=== PATIENT | male | born 1950 | race African-American/Black ===

== ENCOUNTER 2016-04-25 06:46 | Inpatient (IN) | payer MEDICARE ==
--- NOTE | 2016-04-25 07:39 | HIM.ANES ---
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 SILENT HEART ATTACK), Hx Cardiac Disorders, Hx Congestive Heart Failure No: Hx Angina, Hx Deep Vein Thrombosis EKG Rhythm: Sinus rhythm with occasional premature atrial contractions HEENT: Yes: Loose/Decaying Teeth, Removable Dental Work, Hx Vision Problem ( WEARS GLASSES), Other HEENT Problems Hx Other HEENT Problems: ALLERGIC RHINNITIS Respiratory: No: Hx Asthma, Hx Emphysema Gastrointestinal: No: Hx Gastroesophageal Reflux Disease, Hx Gastrointestinal Disorders Genitourinary: No: Hx Renal Disease Neurological/Musculoskeletal: No: HX Cerebrovascular Accident, Hx Neurological Disorders Psychological: No Hx Mental/Emotional Disorders Blood/Autoimmune: No: Hx AIDS, Hx Hepatitis (type) Smoking Status: Former smoker Hx Stress Test (date): Yes (John) Hx Echocardiogram (date): Yes (John Barros?) -Report Findings: Sinus rhythm with occasional premature atrial contractions Right bundle branch block Abnormal ECG - Focused Physical Exam Mallampati: Class I Thyromental Distance: Greater than 3 Neck: Full Range of Motion Dental: Removable Dental Work, Edentulous Cardiovascular/Chest: Normal Respiratory: Lungs clear Any problems with anesthesia, including nausea and vomiting?: No (NEVER HAD SURGERY) Any relatives with a history of Malignant Hyperthermia?: No Does patient have a history of Malignant Hyperthermia?: No Beta Yonny given (if appropriate): Yes Does the patient have a history of Motion Sickness-: No Other: Allergies Allergy/AdvReac Type Severity Reaction Status Date / Time No Known Allergies Allergy Verified 04/23/16 13:53 Home Medications Medication Instructions Recorded Last Taken Type Aspirin [Aspirin EC] 81 mg PO DAILY 04/23/16 04/20/16 History Carvedilol [Coreg] 12.5 mg PO BID 04/23/16 Unknown History Ciprofloxacin HCl [Cipro] 500 mg PO BID 04/23/16 Unknown History Furosemide [Lasix] 20 mg PO DAILY 04/23/16 Unknown History Lisinopril [Prinivil] 10 mg PO DAILY 04/23/16 Unknown History Lovastatin 10 mg PO DAILY 04/23/16 Unknown History Omeprazole [Prilosec] 20 mg PO DAILY 04/23/16 Unknown History Potassium Chloride [Klor-Con] 20 meq PO DAILY 04/23/16 Unknown History Spironolactone [Aldactone] 50 mg PO DAILY 04/23/16 Unknown History Thiamine HCl [Vitamin B-1] 100 mg PO DAILY 04/23/16 Unknown History Height and Weight Patient's height 5 ft 6 in Patient's weight 70.307 kg METS - Level of Activity: Climbing stairs(1 flight),walking level ground, running short distance - Anesthetic Plan Anesthesia Type: General ASA Class: 3 -: I have examined this patient and reviewed the medical record. The patient has been assessed prior to anesthesia. Risks and benefits of anesthesia and anesthetic technique options have been discussed and all questions answered. The patient accepts the risk and desires me to proceed with the planned anesthetic.
[2016-04-25] MEDS ORDERED: ONDANSETRON HCL 4 MG ODT TAB PO PRN (07:43)
[2016-04-25] MEDS ORDERED: FENTANYL 100 MCG/2 ML VIAL IV PRN ×2 (07:43)
[2016-04-25] MEDS ORDERED: MEPERIDINE 25 MG/ML TUBEX IV PRN (07:43)
[2016-04-25] MEDS ORDERED: HYDROmorphone 1 MG INJECTION IV PRN ×2 (07:43)
[2016-04-25] MEDS ORDERED: LABETALOL 20 MG/4 ML SYRINGE IV PRN (07:43)
[2016-04-25] MEDS ORDERED: ONDANSETRON HCL 4 MG/2 ML VIAL IV PRN ×3 (07:43→18:39)
[2016-04-25] MEDS ORDERED: hydrALAZINE 20 MG/ML VIAL IV PRN (07:43)
[2016-04-25] MEDS ORDERED: HEPARIN 5000 UNITS/ML VIAL ONE (07:43)
[2016-04-25] MEDS ORDERED: CEFAZOLIN 1 GM VIAL ONE (07:45)
[2016-04-25] MEDS ORDERED: PROPOFOL 200 MG/20 ML VIAL IV ONE (10:00)
[2016-04-25] MEDS ORDERED: SUCCINYLCHOLINE 20 MG/1 ML INJ 10 ML MDV IV ONE (10:00)
[2016-04-25] MEDS ORDERED: NEOSTIGMINE 1 MG/1 ML (1:1000) INJ 10 ML MDV IM ONE (10:00)
[2016-04-25] MEDS ORDERED: GLYCOPYRROLATE 1 MG VIAL IM ONE (10:00)
[2016-04-25] MEDS ORDERED: ONDANSETRON HCL 4 MG/2 ML VIAL IV ONE (10:00)
[2016-04-25] MEDS ORDERED: FENTANYL 250 MCG/5 ML VIAL IV ONE (10:00)
[2016-04-25] MEDS ORDERED: LIDOCAINE 100 MG PFS IV ONE (10:00)
[2016-04-25] MEDS ORDERED: ROCURONIUM 50 MG/5 ML VIAL IV ONE (10:00)
[2016-04-25] MEDS ORDERED: DEXAMETHASONE 4 MG/ML VIAL IV ONE (10:00)
[2016-04-25] MEDS ORDERED: HYDROmorphone 50 ML IV ONE (10:58)
[2016-04-25] MEDS: HYDROmorphone 50 ML IV PRN (11:04)
[2016-04-25 11:50] VITALS: BMI 26.0
[2016-04-25] MEDS: D5W/LR 1,000 ML IV SCH ×2 (12:06→20:01)
[2016-04-25] MEDS: ONDANSETRON HCL 4 MG/2 ML VIAL IV SCH ×2 (12:38→18:23)
[2016-04-25] MEDS: PANTOPRAZOLE 40 MG VIAL IV SCH (12:40)
[2016-04-25] MEDS: POTASSIUM CHLORIDE 20 MEQ TAB PO SCH (12:42)
[2016-04-25] MEDS: THIAMINE 100 MG TAB PO SCH (12:42)
[2016-04-25] MEDS: Levofloxacin 500 mg/100 ml D5W 500 MG/100 ML RTU IV SCH (12:43)
[2016-04-25 12:53] LABS: AUTOMATED BASOPHIL 0.5 % (0-2); AUTOMATED EOSINOPHIL 0.7 % (0-5); AUTOMATED NEUTROPHIL 84.8 % (45-76); MPV 8.1 fL (7.4-10.4)
[2016-04-25] MEDS ORDERED: Vaccine Screening Complete SCH (13:00)
[2016-04-25 13:06] LABS: BLOOD UREA NITROGEN 13 MG/DL (9-20); CALCIUM 8.4 MG/DL (8.4-10.2); CALCULATED OSMOLALITY 260 MOs/Kg (270-290); CHLORIDE 103 mEq/L (98-107); GLUCOSE 134 mg/dL (70-99); SODIUM LEVEL 134 mEq/L (137-146)
--- NOTE | 2016-04-25 13:12 | HIMOPRPT ---
DATE OF PROCEDURE: 04/25/16 PREOPERATIVE DIAGNOSIS: Adenocarcinoma of the prostate. POSTOPERATIVE DIAGNOSIS: Same. PROCEDURE PERFORMED: [radical retropubic prostatectomy with bilateral pelvic lymphadenectomy]. ANESTHESIA: [] general anesthesia with endotracheal tube. ANESTHESIOLOGIST: [Dr. Pal SURGEON: David Watters MD INDUSTRIAL ILLUMINATING ENGINEER: []. PROCEDURE IN DETAIL: []. Patient brought to the operating room and placed in supine position. General anesthesia by endotracheal tube was given. Once adequate level of anesthesia was obtained a Howell catheter was placed in the bladder and left indwelling. The table was flexed in the middle to extend the pelvis. The abdominal wall and external genitalia were once again prepped and draped usual sterile manner. A midline incision was made starting at the pubic pubic area and extending up to the umbilicus. The subcutaneous tissue and Sulaiman's fascia was incised in line of skin incision. The 2 recti muscles were after incision was made in the anterior rectus sheath. The tendons of the recti muscles were severed at the pubic symphysis partially. The peritoneum was reflected superiorly as much as possible to reach the retropubic space. On the right side the pelvic lymphadenectomy was carried out extending from the inner surface of the pelvis extending up to the hypogastric area. All the external iliac lymph nodes were and removed along with the lymphatics preserving the blood vessels and obturator nerve. The obturator vessels were preserved as well. Once the area was cleaned was packed with a mini lap pad. Exactly similar manner the lymphatic and lymphadenectomy was carried out on the left side as well. There was no evidence of any obvious enlarged or abnormal lymph nodes in these areas. Two incisions were made just lateral to the prostate gland in the endopelvic fascia using cautery. With the finger and did and thumb dissection the lateral surface of the prostate gland was cleared up to its apex. The Howell catheter was palpable in the urethra. The dorsal vein complex was from the urethra using prostate clamp. The dorsal vein complex was then tied with the 1 Vicryl the 2 ligatures were placed. A hemostatic suture was placed at the distal part of the prostate gland using 0 chromic cat gut. The dorsal vein complex was then divided between the ligatures. This exposed the anterior surface of the urethra. The neurovascular bundle was noted alongside the urethra which was dissected with a finger dissection and blunt dissection and the pushed posteriorly as much as possible. Patient is not sexually active and did not have any desire to preserve the sexual function once the urethra was dissected all around a right angle clamp was placed in the back of the urethra and with the knife the anterior surface of the urethra was incised to expose the Howell catheter. The Howell catheter was picked up with a right-angle clamp and divided between the clamps. At this point the posterior layer of the urethra was also divided to the apex of the prostate gland from the urethra completely. The distal end of the catheter was pushed out of the urethra. By gently pulling the on the Howell catheter on the balloon side the apex of the prostate gland were dissected gently with blunt and sharp dissection and a plane was developed between the 2 layers of fascia of Dinonvillier's. Once the prostate was free up to the base of the prostate the lateral pedicles were identified and divided between between the Ligaclips and ligatures. First on the right side the base of the seminal vesicle was identified and it was dissected towards the apex without any difficulty. At this point to the right vas deferens was also identified and I divided between the Ligaclips. Similar dissection was done on the left side and the prostate was free all around the left seminal vesicle came off the prostate gland but it was dissected completely and sent as part of the specimen. The the prostate was free all around except for attachment to the bladder neck which were dissected by blunt and sharp dissection and at the bladder neck where the prostate was by sharp dissection with a knife. The specimen was sent for histological examination. The bladder mucosa was everted at the bladder neck using the interrupted 2 0 chromic catgut. A Vale dilator was used through the urethra to expose the stump of the urethra into the pelvis. Three posterior sutures of foot 3 0 Monocryl were placed 1st and 3 sutures were placed anterior lateral and anteriorly off the same material. At this point the dilator was removed. The sutures were then placed of bladder neck and corresponding sites at this point the rectum and other organs like ureter as well as the peritoneum was checked hemostasis was checked and was found to be quite satisfactory. A new Howell catheter 20 Bulgarian with a 30 cc balloon was inserted and guided into the bladder. Balloon of the catheter was partially inflated. And the sutures were then tied down 1 x 1 while the bladder was being pushed it worse the stump of the urethra. Once the sutures were tied the hemostat once again checked. Bladder was irrigated with 150-200 cc of is normal saline there was very small amount of leak we did not to which did not need to be repaired. And a 30 cc of water was tooth cutter spur instilled into the balloon of the catheter and catheter was left indwelling on slight traction while the rest of the procedure was carried out. Two Shira drains were placed on either side of the lymphadenectomy site these were brought out through separate stab wounds on either side of the main wound. Wound was then closed in layers the tendons of the recti muscles were sutured back to the pubic symphysis using 0 chromic catgut and the recti muscles were approximated with interrupted 0 chromic catgut as well. The rectus sheath was approximated with number 0 0 PDS which was placed starting at the pubic symphysis extending up to the superior part of the wound. The subcutaneous tissue was approximated with the 3 0 Vicryl and the skin was approximated with maxim. The drains was anchored to the skin with 2 0 silk. Wound was cleaned and dressed in sterile manner urostomy bags were placed the drain site. The catheter was once again irrigated to make sure there were no clots. The catheter was taped to the thigh and made sure there are no traction on the catheter. Estimated blood loss was 350 cc out of that 125 cc were returned the patient to with Cell Saver. Patient returned recovery room stable satisfactory condition he will be admitted the hospital for postop care. There were no complication to the procedure patient tolerated the procedure well .
--- NOTE | 2016-04-25 15:41 | SC.ANESPOS ---
Post-Anesthesia Note LOC: Fully Awake Post-Anesthesia Assessment: Awake, Returned to Baseline, Hemodynamically Stable , Pain Control Adequate Phase I & II Recovery Complete: Yes Apparent Anesthesia Complication: No : N - Vital Signs Blood Pressure: 114/74 Pulse: 79 Resp Rate: 18 O2 Sat: 98 Temp: 97.5 F
[2016-04-25] MEDS ORDERED: Medication Special Instructions SCH (19:00)
[2016-04-25] MEDS: CARVEDILOL 12.5 MG TAB PO SCH (20:54)
[2016-04-26] MEDS: D5W/LR 1,000 ML IV SCH ×3 (05:31→17:40)
[2016-04-26] MEDS: SPIRONOLACTONE 50 MG TAB PO SCH (07:54)
[2016-04-26] MEDS: CARVEDILOL 12.5 MG TAB PO SCH ×2 (07:55→20:28)
[2016-04-26] MEDS: PRAVASTATIN 20 MG TAB PO SCH (07:55)
[2016-04-26] MEDS: LISINOPRIL 10 MG TAB PO SCH (07:55)
[2016-04-26] MEDS: FUROSEMIDE 20 MG TAB PO SCH (08:09)
[2016-04-26] MEDS ORDERED: POTASSIUM CHLORIDE 20 MEQ PO SCH (09:00)
[2016-04-26] MEDS ORDERED: LOVASTATIN 10 MG PO SCH (09:00)
[2016-04-26] MEDS: Levofloxacin 500 mg/100 ml D5W 500 MG/100 ML RTU IV SCH (11:20)
[2016-04-26] MEDS: POTASSIUM CHLORIDE 20 MEQ TAB PO SCH (11:20)
[2016-04-26] MEDS: THIAMINE 100 MG TAB PO SCH (11:21)
[2016-04-26] MEDS: PANTOPRAZOLE 40 MG VIAL IV SCH (11:21)
[2016-04-26 18:48] LABS: BLOOD UREA NITROGEN 9 MG/DL (9-20); CALCIUM 9.1 MG/DL (8.4-10.2); CALCULATED OSMOLALITY 256 MOs/Kg (270-290); CHLORIDE 97 mEq/L (98-107); GLUCOSE 115 mg/dL (70-99); SODIUM LEVEL 133 mEq/L (137-146)
[2016-04-27] MEDS: D5W/LR 1,000 ML IV SCH ×4 (01:46→20:00)
[2016-04-27 06:04] LABS: AUTOMATED BASOPHIL 0.4 % (0-2); AUTOMATED EOSINOPHIL 0.1 % (0-5); AUTOMATED MONOCYTE 11.3 % (3-10); AUTOMATED NEUTROPHIL 81.2 % (45-76); MPV 8.7 fL (7.4-10.4)
--- NOTE | 2016-04-27 09:23 | PCM.UROPRO ---
Post Op Day #: 2 Post-op Assessment: Reports: No new complaints, Feels better, Pain is less, Flatus (passed), Bowel Movement (yes), Nausea (no more nausea or vomiting), Ambulating, Catheter draining WNL, Drains WNL (draiage is much less and will shorten the drains today), Urine color WNL - Physical Exam Vital Signs: Temperature: 98.5 F (04/27/16 06:00) HR: 83 (04/27/16 06:00) RR: 18 (04/27/16 08:10) BP: 141/91 (04/27/16 06:00) Pulse Ox: 93 (04/27/16 06:00) General: Alert, Oriented x3, Cooperative, No acute distress Gastrointestinal: Soft, Distended (softly distended), Bowel Sounds (normal) Genitourinary: Catheter in Place Result Diagrams: 04/27/16 05:42 04/26/16 18:32 Plan: doing very well ,will shorten the drains and ambulate ad ely. Will start with clear liquid diet today.
[2016-04-27] MEDS: SPIRONOLACTONE 50 MG TAB PO SCH (10:20)
[2016-04-27] MEDS: CARVEDILOL 12.5 MG TAB PO SCH ×2 (10:20→20:09)
[2016-04-27] MEDS: FUROSEMIDE 20 MG TAB PO SCH (10:21)
[2016-04-27] MEDS: LISINOPRIL 10 MG TAB PO SCH (10:21)
[2016-04-27] MEDS: PRAVASTATIN 20 MG TAB PO SCH (10:21)
[2016-04-27] MEDS: PANTOPRAZOLE 40 MG VIAL IV SCH (12:12)
[2016-04-27] MEDS: THIAMINE 100 MG TAB PO SCH (12:13)
[2016-04-27] MEDS: POTASSIUM CHLORIDE 20 MEQ TAB PO SCH (12:13)
[2016-04-27] MEDS: Levofloxacin 500 mg/100 ml D5W 500 MG/100 ML RTU IV SCH (12:15)
[2016-04-28] MEDS: D5W/LR 1,000 ML IV SCH ×3 (04:40→14:40)
[2016-04-28 08:05] LABS: AUTOMATED BASOPHIL 0.4 % (0-2); AUTOMATED EOSINOPHIL 2.1 % (0-5); AUTOMATED LYMPH 13.4 % (17-44); AUTOMATED MONOCYTE 14.7 % (3-10); AUTOMATED NEUTROPHIL 69.4 % (45-76); MPV 8.7 fL (7.4-10.4)
[2016-04-28] MEDS: CARVEDILOL 12.5 MG TAB PO SCH ×2 (08:35→22:10)
[2016-04-28] MEDS: LISINOPRIL 10 MG TAB PO SCH (08:35)
[2016-04-28] MEDS: FUROSEMIDE 20 MG TAB PO SCH (08:36)
[2016-04-28] MEDS: SPIRONOLACTONE 50 MG TAB PO SCH (08:36)
[2016-04-28] MEDS: PRAVASTATIN 20 MG TAB PO SCH (08:36)
[2016-04-28] MEDS: HYDROmorphone 50 ML IV PRN (09:31)
[2016-04-28] MEDS: THIAMINE 100 MG TAB PO SCH (12:20)
[2016-04-28] MEDS: PANTOPRAZOLE 40 MG VIAL IV SCH (12:20)
[2016-04-28] MEDS: Levofloxacin 500 mg/100 ml D5W 500 MG/100 ML RTU IV SCH (12:20)
[2016-04-28] MEDS: POTASSIUM CHLORIDE 20 MEQ TAB PO SCH (12:20)
[2016-04-28] MEDS ORDERED: OXYCODONE HCL 5 MG TABLET PO PRN (14:14)
--- NOTE | 2016-04-28 14:36 | PCM.UROPRO ---
Post Op Day #: 3 Post-op Assessment: Reports: No new complaints, Feels better, Pain is less, Flatus (passed), Bowel Movement (yes), Nausea (no more nausea or vomiting), Ambulating, Catheter draining WNL, Drains WNL (drains will be removed today), Urine color WNL - Physical Exam Vital Signs: Temperature: 98.6 F (04/28/16 14:00) HR: 91 (04/28/16 14:00) RR: 18 (04/28/16 14:00) BP: 105/57 (04/28/16 14:00) Pulse Ox: 92 (04/28/16 14:00) General: Alert, Oriented x3, Cooperative, No acute distress Gastrointestinal: Soft Genitourinary: Catheter in Place (draining clear urine) Skin: Warm,Dry and Intact Neurological: Normal Steady Gait Result Diagrams: 04/28/16 07:36 04/26/16 18:32 Plan: Doing very well and plan to give him regular diet and if all is well he will be discharged tomorrow with the cath as planned.
[2016-04-28 15:30] LABS: BLOOD UREA NITROGEN 6 MG/DL (9-20); CALCIUM 8.7 MG/DL (8.4-10.2); CALCULATED OSMOLALITY 257 MOs/Kg (270-290); CHLORIDE 98 mEq/L (98-107); GLUCOSE 110 mg/dL (70-99); SODIUM LEVEL 134 mEq/L (137-146)
[2016-04-29 04:48] VITALS: BP 127/66; PULSE 90; TEMP 98.7
[2016-04-29] MEDS: D5W/LR 1,000 ML IV SCH (04:56)
[2016-04-29 07:21] LABS: AUTOMATED BASOPHIL 0.4 % (0-2); AUTOMATED EOSINOPHIL 3.9 % (0-5); AUTOMATED LYMPH 15.7 % (17-44); AUTOMATED MONOCYTE 14.2 % (3-10); AUTOMATED NEUTROPHIL 65.8 % (45-76); MPV 8.7 fL (7.4-10.4)
[2016-04-29] MEDS: LISINOPRIL 10 MG TAB PO SCH (07:31)
[2016-04-29] MEDS: CARVEDILOL 12.5 MG TAB PO SCH (07:31)
[2016-04-29] MEDS: FUROSEMIDE 20 MG TAB PO SCH (07:31)
[2016-04-29] MEDS: SPIRONOLACTONE 50 MG TAB PO SCH (07:31)
[2016-04-29] MEDS: PRAVASTATIN 20 MG TAB PO SCH (07:32)
[2016-04-29] MEDS ORDERED: LEVOFLOXACIN 500 MG TAB PO SCH (12:00)
[2016-04-29] MEDS ORDERED: PANTOPRAZOLE 40 MG VIAL IV SCH (12:00)
[2016-04-29] MEDS: POTASSIUM CHLORIDE 20 MEQ TAB PO SCH (12:07)
[2016-04-29] MEDS: THIAMINE 100 MG TAB PO SCH (12:08)
--- NOTE | 2016-04-29 12:45 | PCM.UROPRO ---
Post Op Day #: 4 Post-op Assessment: Reports: No new complaints, Feels better, Pain is less, Flatus (passed), Bowel Movement (yes), Nausea (no more nausea or vomiting), Ambulating, Catheter draining WNL, Drains WNL (drains will be removed today), Urine color WNL - Physical Exam Vital Signs: Temperature: 98.7 F (04/29/16 04:47) HR: 90 (04/29/16 04:47) RR: 18 (04/29/16 04:47) BP: 127/66 (04/29/16 04:47) Pulse Ox: 92 (04/29/16 04:47) General: Alert, Oriented x3, Cooperative HEENT: Normal Respiratory: Normal - CTA Cardiovascular: Regular rate Gastrointestinal: Soft Genitourinary: External Genitalia, Catheter in Place Musculoskeletal/Extremities: Normal pulses Skin: Warm,Dry and Intact Result Diagrams: 04/29/16 06:24 04/28/16 07:36 Plan: Doing very well plan to discharge today to be followed in the office. Pt will go with the catheter and he will be instructed its care.He has Hct of 25.5 and will be sent on oral iron .
--- NOTE | 2016-04-29 12:56 | PCM.DCS92 ---
- Final/Secondary Discharge Diagnosis (1) Carcinoma of prostate Acute C61 - MALIGNANT NEOPLASM OF PROSTATE (2) Hypertension Acute I10 - ESSENTIAL (PRIMARY) HYPERTENSION (3) GERD (gastroesophageal reflux disease) Acute K21.9 - GASTRO-ESOPHAGEAL REFLUX DISEASE WITHOUT ESOPHAGITIS (4) Anemia due to blood loss Acute D50.0 - IRON DEFICIENCY ANEMIA SECONDARY TO BLOOD LOSS (CHRONIC) Discharge Disposition: Discharge w/ Home Health (Nurse to visit once a day for post op care as well as cath. care) Discharge Condition: Good Cognitive Discharge Status: Unimpaired Fuctional Discharge Status: Independent, Post-op Weakness Home Medications/ New Prescriptions: No Action Spironolactone [Aldactone] 50 mg PO DAILY Omeprazole [Prilosec] 20 mg PO DAILY Aspirin [Aspirin EC] 81 mg PO DAILY Potassium Chloride [Klor-Con] 20 meq PO DAILY Lovastatin 10 mg PO DAILY Lisinopril [Prinivil] 10 mg PO DAILY Furosemide [Lasix] 20 mg PO DAILY Carvedilol [Coreg] 12.5 mg PO BID Thiamine HCl [Vitamin B-1] 100 mg PO DAILY Diet at Discharge: As Tolerated, Regular Activity: As Tolerated, No Heavy Lifting Call Office For: Fever over 101 F - DC Summary Notes Hospital Course Note:: Discharge summary on patient named WINTER TERAN admitted to [facility] on 04/25/16 by David Watters MD. Date of discharge is []. Hospital course: Pt was admitted and underwent Radical retropubic prostatectomy and Burton. pelvic lymphadenectomy and made an uneventful recovery.He is being discharged with the Howell catheter and a leg bag roverto followed in the office. He was asked to continue his own meds except the ASA and meds which are newly prescribed. He will be seen in the office.
[2016-04-29] MEDS ORDERED: IRON POLYSACCHARIDE CAP PO SCH (18:00)
[2016-04-30] MEDS ORDERED: PANTOPRAZOLE 40 MG TAB PO SCH (06:00)
[2016-04-30] MEDS ORDERED: Non-Formulary Medication ITEM (Omeprazole 20 MG) PO SCH (09:00)
== END 2016-04-29 15:06 | disposition home health service (06) | DRG 708 ==
LOC: SDC 06:46 → MPS3 11:22
PROVIDERS: ADMIT Urology; ATTEND Urology
PROC: 07TC0ZZ Resection of Pelvis Lymphatic, Open Approach (ICD-10-PCS; 2016-04-25)
PROC: 0VT00ZZ Resection of Prostate, Open Approach (ICD-10-PCS; principal; 2016-04-25 08:00)
DX: C61 Malignant neoplasm of prostate (principal); I10 Essential (primary) hypertension; K21.9 Gastro-esophageal reflux disease without esophagitis; D50.0 Iron deficiency anemia secondary to blood loss (chronic); Z87.891 Personal history of nicotine dependence
CPT/HCPCS: 80048; 85025; G0237; J0330; J0690; J1100; J1170; J1644; J1956; J2001; J2405; J2710; J3010; J3490; S0164